=== PATIENT | male | born 1970 | race Caucasian/White ===

== ENCOUNTER 2018-12-08 03:30 | Emergency (ER) | payer SELFPAY ==
[~2018-12-08] VITALS: Ht 170.2 cm; Wt 108.9 kg
[2018-12-08 03:35] VITALS: BP 188/108
--- NOTE | 2018-12-08 03:35 | NUR ---
PT CAME IN TO ER WITH LLQ ABDOMINAL PAIN X 1 HOUR. PT STATED HE WOKE UP WITH SEVERE PAIN 10/10. PT STATED HE FEELS LIKE HE HAS TO HAVE A BM BUT IS UNABLE TO. PT IS A/OX4. PT HAS SOME N/V. ERMD MADE AWARE OF STATUS. SAFETY MEASURES IN PLACE.
--- NOTE | 2018-12-08 03:37 | NUR ---
PT AMBULATED TO ER BED 9 Addendum: 12/08/18 at 0337 by [facility] PT BIB W/C TO ER BED 9
[2018-12-08] MEDS ORDERED: KETOROLAC 30 MG/ML VIAL ONE (03:39)
[2018-12-08] MEDS ORDERED: ONDANSETRON 4 MG/2 ML VIAL ONE (03:40)
[2018-12-08] MEDS ORDERED: NACL 0.9% 1,000 ML IV ONE (03:45)
[2018-12-08] MEDS ORDERED: KETOROLAC 30 MG/ML VIAL IVP ONE (03:45)
[2018-12-08] MEDS ORDERED: ONDANSETRON 4 MG/2 ML VIAL IVP ONE ×2 (03:45→05:30)
[2018-12-08 04:02] LABS: BASOPHILS # (AUTO) 0.1 K/uL (0.00-0.22); BASOPHILS % (AUTO) 1.3 % (0.0-2.0); EOSINOPHILS # (AUTO) 0.5 K/uL (0-0.4); EOSINOPHILS % (AUTO) 6.3 % (0.0-4.0); HEMATOCRIT 45.9 % (36-52); HEMOGLOBIN 15.7 g/dL (12.0-18.0); LYMPHOCYTES # (AUTO) 2.6 K/uL (2.0-11.5); LYMPHOCYTES % (AUTO) 32.1 % (20.5-51.1); MEAN CORPUSCULAR HEMOGLOBIN 32 pg (27-31); MEAN CORPUSCULAR HGB CONC 34 g/dL (33-37); MEAN CORPUSCULAR VOLUME 94.2 fL (80-94); MONOCYTES # (AUTO) 0.7 K/uL (0.8-1.0); MONOCYTES % (AUTO) 8.9 % (1.7-9.3); NEUTROPHILS # (AUTO) 4.2 K/uL (1.8-7.7); NEUTROPHILS % (AUTO) 51.4 % (42.2-75.2); PLATELET COUNT (AUTO) 254 K/uL (140-450); RED BLOOD CELL COUNT(AUTO) 4.87 MIL/uL (4.20-6.10); RED CELL DISTRIBUTION WIDTH 13.7 % (11.6-13.7); WHITE BLOOD COUNT (AUTO) 8.2 K/uL (4.8-10.8)
[2018-12-08 04:18] LABS: ANION GAP 12.8 (8-16); CARBON DIOXIDE 28.8 mmol/L (21-32); CREATININE 1.4 mg/dL (0.7-1.3); POTASSIUM 3.6 mmol/L (3.5-5.1)
[2018-12-08 04:23] LABS: ALBUMIN 3.9 g/dL (3.4-5.0); TOTAL BILIRUBIN 0.3 mg/dL (0.0-1.0)
--- NOTE | 2018-12-08 05:08 | NUR ---
PT TAKEN TO CT VIA W/C
--- NOTE | 2018-12-08 05:18 | NUR ---
URINE COLLECTED AND TAKEN TO LAB
--- NOTE | 2018-12-08 05:21 | NUR ---
PT IS HAVING PAIN 10/10. ERMD MADE AWARE OF STATUS.
--- NOTE | 2018-12-08 05:21 | NUR ---
PT RETURNED FROM CT VIA WC
[2018-12-08] MEDS ORDERED: MORPHINE SULFATE 10 MG/ML VIAL IVP ONE ×2 (05:30→06:15)
[2018-12-08 05:55] LABS: APPEARANCE,URINE CLEAR (CLEAR); BILIRUBIN,URINE NEGATIVE (NEGATIVE); BLOOD, URINE NEGATIVE (NEGATIVE); COLOR,URINE YELLOW (YELLOW); LEUKOCYTE ESTERASE ,URINE NEGATIVE (NEGATIVE); NITRITE, URINE NEGATIVE (NEGATIVE); PH,URINE 6.5 (5.0-9.0); UGLUCOSE NEGATIVE (NEGATIVE)
[2018-12-08] MEDS ORDERED: TAMSULOSIN 0.4 MG CAP PO ONE (06:15)
[2018-12-08] MEDS ORDERED: TAMSULOSIN 0.4 MG CAP ONE (06:34)
--- NOTE | 2018-12-08 07:07 | NUR ---
GAVE BEDSIDE REPORT TO JAISON ANTHONY AND SANDY CORRALES.
--- NOTE | 2018-12-08 07:08 | NUR ---
REPORT RECIEVED FROM WHITLEY DELGADO.
--- NOTE | 2018-12-08 07:22 | NUR ---
ER AT BEDSIDE
--- NOTE | 2018-12-08 08:50 | NUR ---
ER MED AT BEDSIDE
--- NOTE | 2018-12-08 09:13 | NUR ---
X-Ray at bedside.
--- NOTE | 2018-12-08 09:49 | NUR ---
Patient discharged with v/s stable. Written and verbal after care instructions given and explained. Patient alert, oriented and verbalized understanding of instructions. Ambulatory with steady gait. All questions addressed prior to discharge. ID band removed. Patient advised to follow up with PMD. Rx of motrin, norco, tamsulosin given. Patient educated on indication of medication including possible reaction and side effects. Opportunity to ask questions provided and answered. Pt is waiting in lobby for ride.
[2018-12-08 09:51] VITALS: BP 147/91
== END 2018-12-08 09:49 | disposition home or self-care (01) ==
LOC: MED 03:30
DX: N13.2 Hydronephrosis with renal and ureteral calculous obstruction (principal); R91.1 Solitary pulmonary nodule; R11.2 Nausea with vomiting, unspecified; Z88.0 Allergy status to penicillin
CPT/HCPCS: 36415; 71045; 74176; 80053; 81003; 85025; 96361; 96374; 96375; 96376; 99284; J1885; J2270; J2405; Q0092; J7030

== ENCOUNTER 2018-12-10 04:09 | Emergency (ER) | payer SELFPAY ==
[~2018-12-10] VITALS: Ht 170.2 cm; Wt 106.6 kg
--- NOTE | 2018-12-10 04:10 | NUR ---
PT TAKEN TO BED 7
[2018-12-10 04:16] VITALS: BP 189/93
--- NOTE | 2018-12-10 04:19 | NUR ---
48 Y/O MALE PRESENTS TO ED, C/O OF ABDOMINAL PAIN 11/30. PT STATES PAIN IS WORSENING SINCE TUESDAY. STATES BEING DIAGNOSED LEFT SIDE KIDNEY STONES. RX NORCO BUT STATES MEDICATION WAS INEFFECTIVE. C/O OF N/V. ERMD AWARE. WILL CONTINUE TO MONITOR.
--- NOTE | 2018-12-10 04:22 | NUR ---
Dr. Lewis examining patient.
[2018-12-10] MEDS ORDERED: NACL 0.9% 500 ML IV ONE (04:23)
[2018-12-10] MEDS ORDERED: ONDANSETRON 4 MG/2 ML VIAL IVP ONE (04:25)
[2018-12-10] MEDS ORDERED: KETOROLAC 30 MG/ML VIAL IVP ONE (04:25)
--- NOTE | 2018-12-10 04:36 | NUR ---
PT TAKEN TO CT
[2018-12-10] MEDS ORDERED: MORPHINE SULFATE 2 MG/ML SYR IVP ONE ×2 (04:55→05:50)
[2018-12-10] MEDS ORDERED: LEVOFLOXACIN 500 MG TAB PO ONE (05:45)
--- NOTE | 2018-12-10 06:32 | NUR ---
PT AWAKE, LAYING ON BED. FRIEND AT BEDSIDE. PT CONTINUES TO C/O PAIN 10/31. PT VSS. ERMD AWARE. WILL CONTINUE TO MONITOR.
[2018-12-10 06:50] VITALS: BP 185/98
--- NOTE | 2018-12-10 06:50 | NUR ---
PT DISCHARGED WITH PAPERWORK. RX ZOFRAN, PERCOCET, CIPRO. EDUCATED PT REGARDING MEDICATIONS AND S/E. EDUCATED PT REGARDING D/C DIAGNOSIS AND INSTRUCTIONS. PT VERBALIZED UNDERSTANDING OF TEACHING. TOLD PT TO FOLLOW UP WITH PCP AND WHEN TO RETURN TO ED. PT VSS. ALL QUESTIONS ANSWERED.
== END 2018-12-10 06:50 | disposition home or self-care (01) ==
LOC: MED 04:09
DX: N13.0 Hydronephrosis with ureteropelvic junction obstruction (principal); N13.6 Pyonephrosis; I10 Essential (primary) hypertension; R11.2 Nausea with vomiting, unspecified; F17.200 Nicotine dependence, unspecified, uncomplicated; Z88.0 Allergy status to penicillin; Z88.1 Allergy status to other antibiotic agents
CPT/HCPCS: 74176; 96361; 96374; 96375; 96376; 99284; J1885; J2270; J2405; J7030